=== PATIENT | female | born 1995 | race African-American/Black ===

== ENCOUNTER 2016-10-25 19:58 | Emergency (ER) | payer OTHER ==
[~2016-10-25] VITALS: Ht 167.6 cm; Wt 105.0 kg
[~2016-10-25 19:58] MED LIST: AUGM875T PO; IBUP800T23 PO
[2016-10-25 20:00] VITALS: BP 141/82; PULSE 80; RESP 16; TEMP 98.7; O2SAT 99
--- NOTE | 2016-10-25 20:32 | PD ---
Physical Exam Date Seen by Provider: Oct 25, 2016 Time Seen by Provider: 20:30 Data Data Last Documented VS Vital Signs Date Time Temp Pulse Resp B/P (MAP) Pulse Ox O2 Delivery O2 Flow Rate FiO2 10/25/16 20:00 98.7 80 16 141/82 (101) 99 MDM Supervised Visit with DELFINO: No Narrative Course 20 YO F with complaint of cough x 2 days. Endorses CP, hemoptysis. --F/C. Patient states that she has had 2 episodes of post tussive syncope. LMP 10/18. Vitals reviewed. Patient seen in triage, awaiting bed placement. Belen Harrell Oct 25, 2016 20:32
[2016-10-25 23:10] VITALS: BP_SYST 140; BP_SYST 144; BP_DIAS 78; BP_DIAS 79; RESP 18
[2016-10-25 23:28] VITALS: RESP 18; O2SAT 97
[2016-10-25] MEDS ORDERED: SODIUM CHLORIDE 0.9% FLUSH 10 ML FLUSH IVF PRN (23:30)
[2016-10-25 23:37] LABS: AUTOMATED NEUTROPHIL # 8.7 TH/MM3 (1.8-7.7); BASOPHIL # 0.1 TH/MM3 (0-0.2); BASOPHIL % 0.5 % (0.0-2.0); EOSINOPHIL # 0.3 TH/MM3 (0-0.4); EOSINOPHIL % 2.4 % (0.0-4.0); HEMATOCRIT 37.3 % (35.0-46.0); HEMO FLAGS DIFF FINAL; LYMPH % 20.7 % (9.0-44.0); LYMPHOCYTE # 2.6 TH/MM3 (1.0-4.8); MEAN CELL VOLUME 95.9 FL (80.0-100.0); MEAN CORPUSCULAR HEMOGLOBIN 31.2 PG (27.0-34.0); MEAN CORPUSCULAR HGB CONC 32.5 % (32.0-36.0); MONO % 6.5 % (0.0-8.0); NEUT % 69.9 % (16.0-70.0); PLATELET COUNT 262 TH/MM3 (150-450); RED BLOOD COUNT 3.89 MIL/MM3 (4.00-5.30); WHITE BLOOD COUNT 12.5 TH/MM3 (4.0-11.0)
--- NOTE | 2016-10-25 23:40 | PD ---
HPI Chief Complaint: Respiratory Symptoms Time Seen by Provider: 23:04 Travel History International Travel<30 days: No Contact w/Intl Traveler<30days: No Traveled to known affect area: No History of Present Illness HPI Patient is a 20-year-old female presents emergency department with cough congestion and shortness of breath. States she's also been having some mild hemoptysis. Just blood streaking in the mucus for the past 4 days. Denies any fevers but does endorse a headache. No nausea no vomiting no vaginal bleeding vaginal discharge no change in stool habits no change in urine habits. Patient states symptoms are gradually getting worse. Patient also states that she had a syncopal episode yesterday during which time she had no shortness of breath and no chest pain. PFSH Past Medical History Diminished Hearing: No Gastrointestinal Disorders: Yes (ACID REFLUX) GERD: Yes Immunizations Current: Yes Tetanus Vaccination: < 5 Years Influenza Vaccination: No ?: Not LMP: 10/19/16 : 0 Past Surgical History Surgical History: No Previous Surgery Social History Alcohol Use: No Tobacco Use: No Substance Use: No Allergies-Medications (Allergen,Severity, Reaction): Uncoded Allergies: ANTIBIOTIC (Allergy, Severe, Hives, 10/23/13) PT STATES SHE HAD A REACTION TO AN ANTIBIOTIC THAT STARTED WITH "CE" Reported Meds & Prescriptions Reported Meds & Active Scripts Active Tessalon Perles (Benzonatate) 100 Mg Cap 100 Mg PO TID PRN Review of Systems Except as stated in HPI: all other systems reviewed are Neg Physical Exam Narrative GENERAL: Well-developed well-nourished no obvious distress, overweight. SKIN: Focused skin assessment warm/dry. HEAD: Atraumatic. Normocephalic. EYES: Pupils equal and round. No scleral icterus. No injection or drainage. ENT: No nasal bleeding or discharge. Mucous membranes pink and moist. NECK: Trachea midline. No JVD. CARDIOVASCULAR: Regular rate and rhythm. No murmur appreciated. 2+ bilateral equal pulses in all 4 extremities. RESPIRATORY: No accessory muscle use. Clear to auscultation. Breath sounds equal bilaterally. GASTROINTESTINAL: Abdomen soft, non-tender, nondistended. Hepatic and splenic margins not palpable. MUSCULOSKELETAL: No obvious deformities. No clubbing. No cyanosis. No edema. NEUROLOGICAL: Awake and alert. No obvious cranial nerve deficits. Motor grossly within normal limits. Normal speech. PSYCHIATRIC: Appropriate mood and affect; insight and judgment normal. Data Data Last Documented VS Vital Signs Date Time Temp Pulse Resp B/P (MAP) Pulse Ox O2 Delivery O2 Flow Rate FiO2 10/25/16 23:33 98 Room Air 10/25/16 23:32 18 10/25/16 23:28 10/25/16 23:10 66 73 77 10/25/16 20:00 98.7 Orders Orders Electrocardiogram (10/25/16:19) Ckmb (Isoenzyme) Profile (10/25/16 23:19) Complete Blood Count With Diff (10/25/16 23:19) Comprehensive Metabolic Panel (10/25/16:) D-Dimer (10/25/16:) Magnesium (Mg) (10/25/16:19) Prothrombin Time / Inr (Pt) (10/25/16:19) Act Partial Throm Time (Ptt) (10/25/16:19) Troponin I (10/25/16:19) Chest, Single Ap (10/25/16 23:19) Ecg Monitoring (10/25/16:19) Bilateral Bp Monitoring (10/25/16 23:19) Iv Access Insert/Monitor (10/25/16:19) Oximetry (10/25/16:19) Oxygen Administration (10/25/16:19) Sodium Chloride 0.9% Flush (Ns Flush) (10/25/16 23:30) Orthostatic Vital Signs (10/25/16 23:19) Ed Urine Pregnancytest Poc (10/25/16 23:20) Sodium Chlor 0.9% 1000 Ml Inj (Ns 1000 M (10/26/16 00:00) Acetaminophen (Tylenol) (10/26/16 00:00) CKMB (10/25/16 23:10) CKMB% (10/25/16 23:10) Labs Laboratory Tests Test 10/25/16 23:10 White Blood Count 12.5 TH/MM3 Red Blood Count 3.89 MIL/MM3 Hemoglobin 12.1 GM/DL Hematocrit 37.3 % Mean Corpuscular Volume 95.9 FL Mean Corpuscular Hemoglobin 31.2 PG Mean Corpuscular Hemoglobin Concent 32.5 % Red Cell Distribution Width 13.0 % Platelet Count 262 TH/MM3 Mean Platelet Volume 8.9 FL Neutrophils (%) (Auto) 69.9 % Lymphocytes (%) (Auto) 20.7 % Monocytes (%) (Auto) 6.5 % Eosinophils (%) (Auto) 2.4 % Basophils (%) (Auto) 0.5 % Neutrophils # (Auto) 8.7 TH/MM3 Lymphocytes # (Auto) 2.6 TH/MM3 Monocytes # (Auto) 0.8 TH/MM3 Eosinophils # (Auto) 0.3 TH/MM3 Basophils # (Auto) 0.1 TH/MM3 CBC Comment DIFF FINAL Differential Comment Prothrombin Time 10.7 SEC Prothromb Time International Ratio 1.0 RATIO Activated Partial Thromboplast Time 29.9 SEC D-Dimer Quantitative (PE/DVT) LESS THAN 0.19 MG/L FEU Blood Urea Nitrogen 9 MG/DL Creatinine 0.87 MG/DL Random Glucose 77 MG/DL Total Protein 7.5 GM/DL Albumin 3.7 GM/DL Calcium Level 8.6 MG/DL Magnesium Level 2.0 MG/DL Alkaline Phosphatase 47 U/L Aspartate Amino Transf (AST/SGOT) 8 U/L Alanine Aminotransferase (ALT/SGPT) 16 U/L Total Bilirubin 0.4 MG/DL Sodium Level 140 MEQ/L Potassium Level 3.4 MEQ/L Chloride Level 105 MEQ/L Carbon Dioxide Level 27.8 MEQ/L Anion Gap 7 MEQ/L Estimat Glomerular Filtration Rate 100 ML/MIN Total Creatine Kinase 146 U/L Creatine Kinase MB LESS THAN 0.5 NG/ML Troponin I LESS THAN 0.02 NG/ML MDM Medical Decision Making Medical Screen Exam Complete: Yes Emergency Medical Condition: Yes Interpretation(s) EKG shows normal sinus rhythm rate is 65, intervals within normal limits, normal axis normal R-wave progression. No concerning ST segment changes. This normal EKG. Differential Diagnosis Bronchitis, PE unlikely, pneumonia, ACS is highly unlikely, Narrative Course Patient roomed in emergency department, her symptoms are highly suggestive of bronchitis versus pneumonia. D-dimer is negative. Chest x-ray negative. Her blood work and EKG are reassuring. At this time the patient is stable for discharge. Most likely diagnosed bronchitis. Discussed symptomatic management return to ED criteria. Diagnosis Primary Impression: Bronchitis Med/Other Pt SpecificInfo: Prescription(s) given Scripts Benzonatate (Tessalon Perles) 100 Mg Cap 100 MG PO TID Y for COUGH, #30 CAP 0 Refills Prov: Josias Rene MD 10/26/16 Disposition: 01 DISCHARGE HOME Condition: Stable Josias Rene MD Oct 25, 2016 23:40
[2016-10-25 23:54] LABS: ALT (GPT) 16 U/L (9-42); ANION GAP 7 MEQ/L (5-15); AST (GOT) 8 U/L (16-38); BICARBONATE 27.8 MEQ/L (21.0-32.0); BLOOD UREA NITROGEN 9 MG/DL (7-18); CHLORIDE 105 MEQ/L (98-107); GLOMERULAR FILTRATION RATE 100 ML/MIN (>89); POTASSIUM 3.4 MEQ/L (3.5-5.1); SODIUM (NA) 140 MEQ/L (136-145)
[2016-10-25 23:58] LABS: ALKALINE PHOSPHATASE 47 U/L (45-117); CREATINE KINASE 146 U/L (26-192); TOTAL BILIRUBIN ADULT 0.4 MG/DL (0.2-1.0)
[2016-10-26] LABS: APTT (PATIENT) 29.9 SEC (24.3-30.1); PROTHROMBIN TIME - PATIENT 10.7 SEC (9.8-11.6)
[2016-10-26] MEDS ORDERED: SODIUM CHLOR 0.9% 1000 ML INJ 1,000 ML IV ONE
[2016-10-26] MEDS ORDERED: ACETAMINOPHEN 325 MG TAB PO ONE
[2016-10-26 00:10] LABS: CKMB LESS THAN 0.5 NG/ML (0.5-3.6)
[2016-10-26] MEDS ORDERED: BENZ100 PO (00:16)
--- NOTE | 2016-10-26 00:19 | RADRPT ---
EXAM DATE/TIME: 10/25/2016 23:23 [facility] COMPARISON: No previous studies available for comparison. INDICATIONS : Chest pain with shortness of breath. MEDICAL HISTORY : None. SURGICAL HISTORY : None. ENCOUNTER: Initial ACUITY: 1 day PAIN SCORE: 4/10 LOCATION: Right chest FINDINGS: A single view of the chest demonstrates the lungs to be symmetrically aerated without evidence of mas s, infiltrate or effusion. The cardiomediastinal contours are unremarkable. Osseous structures are intact. CONCLUSION: No acute disease. Tan Salter MD on October 26, 2016 at 0:18 Board Certified Radiologist. This report was verified electronically.
[2016-10-26 01:19] VITALS: BP 148/86; PULSE 75; RESP 18; TEMP 98.1; O2SAT 100
--- NOTE | 2016-10-26 19:41 | EKG ---
Date Performed: 10/25/2016 Time Performed: 23:36:15 PTAGE: 20 years EKG: Sinus rhythm NORMAL ECG PREVIOUS TRACING : 10/25/2016 23.29 Compared to prior tracing no significant change DOCTOR: Bernice Fields Interpretating Date/Time 10/26/2016 19:40:00
== END 2016-10-26 01:21 | disposition home or self-care (01) ==
LOC: NEPD 19:58
DX: J40 Bronchitis, not specified as acute or chronic (principal); K21.9 Gastro-esophageal reflux disease without esophagitis; R07.9 Chest pain, unspecified
CPT/HCPCS: 71010; 80053; 82550; 82552; 83735; 84484; 84703; 85025; 85379; 85610; 85730; 93005; 96360; 99285; J7030